=== PATIENT | female | born 1990 | race Caucasian/White ===

== ENCOUNTER 2022-06-16 02:05 | Inpatient (IN) | payer OTHER ==
[2022-06-16] MEDS ORDERED: ELECTROLYTE-148 SOLN 1,000 ML IV SCH ×2 (02:45→03:30)
[2022-06-16] MEDS ORDERED: AMPICILLIN - 2 GM in SODIUM CHLORIDE 100 ML IVPB ONE (03:00)
[2022-06-16 03:13] LABS: BASO % 0.3 % (0-2.0); EOS % 2.7 % (0-4.5); HEMATOCRIT 39.7 % (32.4-45.2); HEMOGLOBIN 13.4 GM/dL (10.7-15.3); LYMPH % 17.2 % (8-40); MCH 28.8 pg (25.7-33.7); MCHC 33.8 g/dl (32.0-36.0); MEAN CELL VOLUME 85.3 fl (80-96); MEAN PLT VOLUME 9.4 fl (7.5-11.1); MONO % 7.7 % (3.8-10.2); NEUT % 72.1 % (42.8-82.8); PLATELET COUNT 185 10^3/uL (134-434); RBC 4.65 M/mm3 (3.60-5.2); RDW 15.5 % (11.6-15.6); WHITE BLOOD COUNT 9.3 K/mm3 (4.0-10.0)
[2022-06-16 03:18] LABS: INR 0.9 (0.83-1.09); PROTHROMBIN TIME (PATIENT) 10.5 SEC (9.7-13.0)
[2022-06-16 03:19] VITALS: BMI 35.3
[2022-06-16 03:20] LABS: ACTIVATED PTT 24.2 SECONDS (25.2-36.5)
[2022-06-16] MEDS ORDERED: FENTANYL/BUPIVACAINE/NS/PF - PCEA - 50 ML DISP.SYRIN EP ONE ×3 (03:26→12:59)
[2022-06-16 03:31] LABS: CALCIUM 8.9 mg/dL (8.5-10.1)
[2022-06-16 03:32] LABS: BLOOD UREA NITROGEN 9.9 mg/dL (7-18)
[2022-06-16 03:35] LABS: CREATININE 0.5 mg/dL (0.55-1.3)
[2022-06-16] MEDS ORDERED: BUPIVACAINE HCL/PF 0.25% (2.5MG/ML) 10 ML VIAL ONE (03:42)
[2022-06-16] MEDS ORDERED: LIDO 2%/EPI 1:200000 PRESRVFRE (20 ML SDVIAL) ONE (03:43)
[2022-06-16] MEDS ORDERED: FENTANYL CITRATE/PF 50 MCG/ML VIAL ONE (03:43)
[2022-06-16 03:59] LABS: SYPHILIS W/ RPR CONF NON-REACTIVE (NONREACTIVE)
[2022-06-16] MEDS: FENTANYL/BUPIVACAINE/NS/PF - PCEA - 50 ML DISP.SYRIN EP SCH ×3 (04:00→13:00)
[2022-06-16] MEDS ORDERED: NALOXONE HCL 0.4 MG/ML VIAL IVPUSH PRN (04:01)
[2022-06-16 04:27] LABS: HIV INTERPRETATION NEGATIVE (NEGATIVE)
[2022-06-16 04:54] LABS: URINE BARBITURATES NEGATIVE (NEGATIVE)
[2022-06-16 04:55] LABS: COCAINE, UR NEGATIVE (NEGATIVE); METHADONE, UR NEGATIVE (NEGATIVE); OPIATES, URI NEGATIVE (NEGATIVE); PHENCYCLIDINE,URINE NEGATIVE (NEGATIVE); URINE AMPHETAMINES NEGATIVE (NEGATIVE); URINE BENZODIAZEPINES NEGATIVE (NEGATIVE)
[2022-06-16] MEDS ORDERED: AMPICILLIN SODIUM 1 GM VIAL ONE (06:05)
[2022-06-16] MEDS: AMPICILLIN - 1 GM in SODIUM CHLORIDE 100 ML IVPB SCH ×2 (06:10→11:39)
[2022-06-16] MEDS ORDERED: OXYTOCIN 20 UNITS in 0.9% NS 20 UNIT/1,000 ML INFUS.BAG IV ONE (09:14)
[2022-06-16] MEDS ORDERED: LIDOCAINE HCL 1% PRESERVATIVE FREE - 30ML VIAL ONE (09:14)
[2022-06-16] MEDS ORDERED: OXYTOCIN 30 UNITS in 0.9% NS 30 UNIT/500 ML INFUS.BAG IVPB ONE (09:25)
[2022-06-16] MEDS ORDERED: OXYTOCIN 30 UNITS in 0.9% NS 30 UNIT/500 ML INFUS.BAG IVPB SCH (09:45)
[2022-06-16] MEDS ORDERED: WITCH HAZEL 50% (TUCKS) 40 PAD/JAR PAD TP PRN (14:08)
[2022-06-16] MEDS ORDERED: ACETAMINOPHEN 325 MG TABLET (FP) PO PRN (14:08)
[2022-06-16] MEDS ORDERED: BISACODYL 10 MG SUPP.RECT RC PRN (14:08)
[2022-06-16] MEDS ORDERED: BENZOCAINE 20% 57 GM BOTTLE TP PRN (14:08)
[2022-06-16] MEDS ORDERED: METHYLERGONOVINE MALEATE 0.2 MG/1 ML AMP IM PRN (14:08)
[2022-06-16] MEDS ORDERED: BENZOCAINE 28 GM HEMORRHOIDAL OINTMENT TP PRN (14:08)
[2022-06-16] MEDS ORDERED: OXYTOCIN 20 UNITS in 0.9% NS 20 UNIT/1,000 ML INFUS.BAG IV SCH (14:15)
[2022-06-16] MEDS ORDERED: ACETAMINOPHEN 325 MG TABLET (FP) ONE (16:23)
[2022-06-17] MEDS: IBUPROFEN 600 MG TABLET (FP) PO PRN ×2 (05:36→19:35)
[2022-06-17 06:42] LABS: BASO % 0.2 % (0-2.0); EOS % 2.1 % (0-4.5); HEMATOCRIT 35.8 % (32.4-45.2); HEMOGLOBIN 12.3 GM/dL (10.7-15.3); LYMPH % 10.8 % (8-40); MCH 29.3 pg (25.7-33.7); MCHC 34.5 g/dl (32.0-36.0); MEAN PLT VOLUME 9.6 fl (7.5-11.1); MONO % 6.8 % (3.8-10.2); NEUT % 80.1 % (42.8-82.8); PLATELET COUNT 149 10^3/uL (134-434); RBC 4.21 M/mm3 (3.60-5.2); RDW 15.4 % (11.6-15.6); WHITE BLOOD COUNT 12.5 K/mm3 (4.0-10.0)
[2022-06-17] MEDS: PRENATAL VITAMINS W/ FOLIC ACID TABLET (FP) PO SCH (10:05)
[2022-06-17] MEDS ORDERED: SENNOSIDES/DOCUSATE COMBO (SENNA PLUS) TABLET (UD) PO PRN (22:00)
[2022-06-17 22:01] VITALS: RESP 17
[2022-06-18] MEDS: PRENATAL VITAMINS W/ FOLIC ACID TABLET (FP) PO SCH (09:14)
[2022-06-18 18:16] VITALS: BP 119/67; PULSE 76; TEMP 98
== END 2022-06-18 19:00 | disposition home or self-care (01) | DRG 560 ==
LOC: JLDR 02:05 → J3W 16:45
PROVIDERS: ADMIT Obstetrics & Gynecology; ATTEND Obstetrics & Gynecology
PROC: 0HQ9XZZ Repair Perineum Skin, External Approach (ICD-10-PCS; principal; 2022-06-16)
PROC: 10E0XZZ Delivery of Products of Conception, External Approach (ICD-10-PCS; 2022-06-16)
DX: O99.214 Obesity complicating childbirth (principal); E66.9 Obesity, unspecified; O70.0 First degree perineal laceration during delivery; Z3A.40 40 weeks gestation of pregnancy; Z37.0 Single live birth
CPT/HCPCS: 36415; 80048; 80307; 85025; 85610; 85730; 86780; 86850; 86900; 86901; 87389; C9803-CS; U0003; U0005